=== PATIENT | female | born 1975 | race African-American/Black ===

== ENCOUNTER 2016-12-15 16:20 | Emergency (ER) | payer OTHER ==
[~2016-12-15] VITALS: Ht 167.6 cm; Wt 91.6 kg
[~2016-12-15 16:20] MED LIST: ACE650RS
[2016-12-15 16:49] LABS: Basophils # (auto) 0 uL; Basophils % (auto) 0.6 % (0.0-2.0); CONDITION Y; DEFINITIVE SEE PRINTOUT; Eosinophils # (auto) 0.2 uL; Eosinophils % (auto) 2.9 % (0.0-7.0); Hematocrit 29.9 % (36.0-46.0); Hemoglobin 9.1 g/dL (12.2-16.2); Lymphocytes # (auto) 1.8 uL; Mean Corpuscular Hemoglobin 18.5 pg (28.0-32.0); Mean Corpuscular Hgb Conc. 30.3 g/dL (32.0-36.0); Mean Corpuscular Volume 61.1 fL (80.0-100.0); Monocytes # (auto) 0.6 uL; Monocytes % (auto) 9.1 % (0.0-12.0); Neutrophils # (auto) 4.2 uL; Neutrophils % (auto) 61.4 % (37.0-80.0); Platelet Count (auto) 371 10^3/uL (140-450); White Blood Cell 6.9 10^3/uL (4.4-10.8)
[2016-12-15 16:57] LABS: Red Cell Distribution Width 20.9 % (11.6-16.0)
[2016-12-15 17:12] LABS: Albumin 3.8 g/dL (3.4-5.0); BUN/Creatinine Ratio 12.6; Bilirubin, Total 0.3 mg/dL (0.2-1.0); Calcium 8.6 mg/dL (8.5-10.1); Magnesium 2.4 mg/dL (1.6-2.6); Potassium 3.5 mmol/L (3.5-5.1); Total Protein 8.1 g/dL (6.4-8.2)
[2016-12-15 17:23] LABS: Platelet Estimate Adequate
[2016-12-15 17:26] LABS: Anisocytosis Moderate; Hypochromia Marked; Microcytosis Marked; Polychromasia Slight; Tear Drop Cells FEW
[2016-12-15 17:27] LABS: Burr Cells FEW; Ovalocytes FEW
[2016-12-16 02:00] VITALS: BP 106/61
== END 2016-12-16 02:24 | disposition home or self-care (01) ==
LOC: ER 16:28
DX: R00.2 Palpitations (principal); D64.9 Anemia, unspecified; J45.909 Unspecified asthma, uncomplicated; F17.210 Nicotine dependence, cigarettes, uncomplicated
CPT/HCPCS: 36415; 80053; 83735; 84484; 85025; 93005

== ENCOUNTER 2017-08-07 20:07 | Emergency (ER) | payer OTHER ==
[~2017-08-07] VITALS: Ht 167.6 cm; Wt 88.0 kg
[2017-08-07 21:24] LABS: Urine Bacteria FEW /hpf (None Seen); Urine Blood Negative /uL (Negative); Urine Mucus FEW (None Seen); Urine Specific Gravity 1.012 (1.001-1.035); Urine WBC 1 /hpf (0 - 5)
[2017-08-07 21:45] LABS: Alcohol, Urine < 3.0 mg/dL (0-5); Amphetamine Screen, Urine NEGATIVE (NEGATIVE); Barbiturate Scree,Urine NEGATIVE (NEGATIVE); Benzodiazephine Screen, Urine NEGATIVE (NEGATIVE); Cannabinoid Screen, Urine NEGATIVE (NEGATIVE); Cocaine Screen, Urine NEGATIVE (NEGATIVE); Opiate Scree,Urine NEGATIVE (NEGATIVE); Phencyclidine Screen, Urine NEGATIVE (NEGATIVE)
[2017-08-07 22:03] LABS: Alanine Aminotransferase 16 U/L (13-56); Albumin 4.1 g/dL (3.4-5.0); Anion Gap 4 (5-15); Aspartate Aminotransferase 15 U/L (15-37); BUN/Creatinine Ratio 10.7; Blood Urea Nitrogen 8 mg/dL (7-18); Calcium 8.4 mg/dL (8.5-10.1); Carbon Dioxide 28 mmol/L (21-32); Chloride 106 mmol/L (98-107); GFR African American 110 mL/min; GFR Non-African American 91 mL/min; Glucose 78 mg/dL (74-106); Potassium 3.5 mmol/L (3.5-5.1); Sodium 138 mmol/L (136-145)
[2017-08-07 22:06] LABS: Basophils # (auto) 0.1 uL; Eosinophils # (auto) 0.2 uL; Hemoglobin 11.8 g/dL (12.2-16.2); Monocytes # (auto) 0.4 uL; White Blood Cell 5.7 10^3/uL (4.4-10.8)
[2017-08-07 22:07] LABS: Alkaline Phosphatase 119 U/L (45-117); Bilirubin, Total 0.3 mg/dL (0.2-1.0); Total Protein 7.8 g/dL (6.4-8.2)
[2017-08-07 22:09] LABS: Basophils % (auto) 1.1 % (0.0-2.0); Eosinophils % (auto) 3.4 % (0.0-7.0); Hematocrit 37.3 % (36.0-46.0); Lymphocytes % (auto) 36.2 % (10.0-50.0); Mean Corpuscular Hemoglobin 24.5 pg (28.0-32.0); Mean Corpuscular Hgb Conc. 31.6 g/dL (32.0-36.0); Mean Corpuscular Volume 77.4 fL (80.0-100.0); Neutrophils % (auto) 52.3 % (37.0-80.0); Platelet Count (auto) 382 10^3/uL (140-450); Red Blood Cells 4.82 10^6/uL (4.0-5.20); Red Cell Distribution Width 16.6 % (11.8-14.3)
[2017-08-07 22:16] LABS: INR 0.95 (0.9-1.15); Partial Thromboplastin Time 25.6 sec (22.64-33.71); Prothrombin Time 10.3 sec (9.37-12.3)
[2017-08-07 22:18] VITALS: BP 129/87
== END 2017-08-07 22:41 | disposition home or self-care (01) ==
LOC: ER 20:07
DX: N39.0 Urinary tract infection, site not specified (principal); R07.9 Chest pain, unspecified; F17.210 Nicotine dependence, cigarettes, uncomplicated; J45.909 Unspecified asthma, uncomplicated
CPT/HCPCS: 36415; 71046; 80053; 80307; 81001; 84484; 85025; 85610; 85730; 93005